=== PATIENT | male | born 1940 | race Caucasian/White ===

== ENCOUNTER 2020-03-28 14:10 | Emergency (ER) | payer MEDICARE, BC, SELFPAY ==
[2020-03-28 14:17] VITALS: BP 128/62; PULSE 65; RESP 18; O2SAT 99; BMI 22.4
--- NOTE | 2020-03-28 15:45 | ED.EXTPRO ---
HPI - Extremity Problem <DOLORES Jacobson - Last Filed: 03/28/20 22:32> General Chief complaint: Extremity Problem,Nontraumatic Stated complaint: states neuropathy, unable to sleep for several day Time Seen by Provider: 03/28/20 14:55 Source: patient Mode of arrival: Ambulatory Limitations: no limitations History of Present Illness HPI Narrative: This is a 79-year-old male, smoker, who presents to ED with son with chief complain of bilateral leg/foot burning, tingling, aching discomfort. Patient reports pain is so severe he could not sleep for last 3 days. Patient has history of diabetes, CAD, [place] with CABG, stroke with carotid stent, hypothyroidism, neuropathy, restless leg syndrome. Patient has been taking Lyrica, lidocaine gel, Ropinole for his symptoms. And patient asked about gabapentin/Neurontin, he states he used to take but this has been ran out. Patient is not currently taking insulin and his blood sugar has been running around 165 mg/dL. Patient had a few hypoglycemic episode from insulin medication. Patient reports pain improves when he is walking around. He denies fever, chills, nausea or vomiting. Patient denies fever, chills, nausea, vomiting, calf pain, calf swelling. Reports fell couple of weeks ago and has old scabs on right anterior echeverria area. Related Data Home Medications Medication Instructions Recorded Confirmed Lidocaine Pain Relief 03/28/20 Plavix 75 mg 03/28/20 Vitamin D3 03/28/20 alogliptin 03/28/20 atorvastatin 80 mg 03/28/20 iron 03/28/20 levothyroxine 03/28/20 lisinopril 10 mg 03/28/20 metformin 500 03/28/20 nitroglycerin mg 03/28/20 pregabalin 03/28/20 ropinirole 03/28/20 tamsulosin mg PO 03/28/20 Previous Rx's Medication Instructions Recorded gabapentin 300 mg PO Q8H #21 cap 03/28/20 Allergies Allergy/AdvReac Type Severity Reaction Status Date / Time propoxyphene [From Darvon] Allergy Intermediate Swelling Verified 03/28/20 14:21 of Lip/Tongue/Throat Review of Systems <DOLORES Jacobson - Last Filed: 03/28/20 22:32> Review of Systems Narrative: General: Denies fever, chills, fatigue, malaise, sweats. HEENT: Denies sinus pain, ear pain, sore throat, difficulty swallowing, dizziness. Respiratory: Denies dyspnea, cough, wheezing, hemoptysis, sputum. Cardiovascular: Denies chest pain, palpitations, orthopnea, edema. Gastrointestinal: Denies nausea, vomiting, abdominal pain, diarrhea, constipation, melena. : Denies dysuria, frequency, incontinence, hematuria, urinary retention. Musculoskeletal: See HPI Skin: Denies rash, skin lesions, or other. Neurologic: See HPI Psychiatric: No concerning psychosocial issues. 12-point review of systems is negative except for those stated above. Patient History <DOLORES Jacobson - Last Filed: 03/28/20 22:32> Medical History CAD (coronary artery disease) (Acute) Diabetes (Acute) Heart attack (Acute) History of common carotid artery stent placement (Acute) Restless leg syndrome (Acute) Stroke (Acute) Surgical History Hx of CABG (Acute) Social History Smoking Status: Current every day smoker Smoking Status: Current every day smoker tobacco type: cigarettes Substance Use Type: does not use Exam <DOLORES Jacobson - Last Filed: 03/28/20 22:32> Narrative Exam Narrative: General appearance: well developed, well nourished, in no acute distress. Head: normocephalic, atraumatic, no scalp lesions, non-tender. ENT: Hearing difficulty. Airway patent. Neck/Thyroid: neck supple, full range of motion, no visible masses or meningeal signs. No JVD, non-tender without lymphadenopathy. Skin: Several dried old scabs on right lower extremity in echeverria area. No signs of cellulitis. No suspicious rashes, lesions over other visible areas. Warm and dry and appropriate color for ethnicity. Heart: no clubbing, no cyanosis, no edema. S1 and S2 normal. RRR w/o murmurs, clicks, or bruits. Lungs: Breathing even and unlabored. No stridor. No accessory muscles used. Able to speak in full sentences. Chest: normal shape and expansion. Abdomen: non-obese, non-distended. Neurologic: alert and oriented. Cognitive exam, CARD PLAYER and PNS grossly intact on informal exam. Psych: good eye contact, normal affect. Initial Vital Signs Initial Vital Signs: Vital Signs Pulse Rate 65 03/28/20 14:17 Respiratory Rate 18 03/28/20 14:17 Blood Pressure 128/62 03/28/20 14:17 Pulse Oximetry 99 03/28/20 14:17 Extrem Right lower extremity: normal to inspection, full ROM, no joint enlargement and lower leg (Several Old scabs without signs of cellulitis) Details: no edema; no tenderness, no localized swelling, no pitting edema, no deformity and no unusual warmth; no edema Left lower extremity: normal to inspection, full ROM and no joint enlargement; no edema <Nicho Montanez MD - Last Filed: 03/29/20 07:46> Initial Vital Signs Initial Vital Signs: Vital Signs Pulse Rate 65 03/28/20 14:17 Respiratory Rate 18 03/28/20 14:17 Blood Pressure 128/62 03/28/20 14:17 Pulse Oximetry 99 03/28/20 14:17 Scores <DOLORES Jacobson - Last Filed: 03/28/20 22:32> GCS [place] coma scale eye opening: Spontaneous [place] coma scale verbal response: Orientated [place] coma scale motor response: Obey commands Serg coma scale total score: 15 Course <DOLORES Jacobson - Last Filed: 03/28/20 22:32> Vital Signs Vital signs: Vital Signs - 8 hr 03/28/20 15:52 Pulse Rate 69 Respiratory Rate 20 Blood Pressure [Left Arm] 114/56 L Pulse Oximetry 95 <Nicho Montanez MD - Last Filed: 03/29/20 07:46> Vital Signs Vital signs: Vital Signs - 8 hr 03/28/20 15:52 Pulse Rate 69 Respiratory Rate 20 Blood Pressure [Left Arm] 114/56 L Pulse Oximetry 95 MDM - Extremity (Nontraumatic) <DOLORES Jacobson - Last Filed: 03/28/20 22:32> Differential Diagnosis Differential diagnosis: Likely cellulitis and other (Neuropathy, restless leg syndrome,) Medical Records Attestation: I reviewed the patient's medical records. [facility] Narrative Medical decision making narrative: Patient's has significant medical history including CAD, [place], stroke with history of diabetes, peripheral neuropathy, restless leg syndrome. Patient currently takes Lyrica and reports ran out of gabapentin for some time. Patient [facility] not [facility] in [facility] after he moved to here. Patient has old healing scab on right lower echeverria without signs and symptoms of cellulitis. Physical exam is not consistent with signs of DVT. Patient reports he has not been able to sleep for last 3 days due to neuropathy. Patient discharged to home with gabapentin 300 mg up to 3 times a day and advised to [facility] with [facility]. Discussed gabapentin precaution including sleepiness/drowsiness. Advised continue with current home medications including Lyrica, Ropinirole. Return precautions were discussed with patient and patient verbalized the understanding and in agreement with the treatment plan. Discharge Plan Departure Patient Disposition: Home Clinical Impression: Neuropathy Discharge Date/Time: 03/28/20 15:52 Instructions: DI for Peripheral Neuropathy Activity Restrictions/Additional Instructions: You have been diagnosed with [pre-existing neuropathy and restless leg syndrome. Please take Neurontin/gabapentin 300 mg up to 3 times a day for pain. This medication may cause drowsiness so please take precautions.]. What to do: *Take your medications as directed. Gabapentin/Neurontin has been transmitted to [facility] in [facility]. Continue current medications including Lyrica but this can cause increasing drowsiness and please monitor for this. *Follow up with your primary care provider in 2-3 days, call for an appointment. Let them know you were seen in the ED and that we asked you to be seen in follow up. Please see [place] clinic information in this discharge instruction. *Return to ED if you have any new, worsening, or concerning symptoms, such as [fever, chest pain, breathing difficulty, unable to tolerate fluids, weakness in your lower extremities or any acute concerns.]. Prescriptions: New gabapentin 300 mg capsule 300 mg PO Q8H Qty: 21 RF: 0 No Action tamsulosin 0.4 mg Capsule PO RF: 0 nitroglycerin 0.4 mg Tablet, Sublingual RF: 0 pregabalin 75 mg capsule RF: 0 levothyroxine 25 mcg Capsule RF: 0 Lidocaine Pain Relief RF: 0 Plavix 75 mg RF: 0 Vitamin D3 RF: 0 alogliptin RF: 0 atorvastatin 80 mg RF: 0 iron RF: 0 lisinopril 10 mg RF: 0 metformin 500 RF: 0 ropinirole RF: 0 Referrals: [place] [facility] ([facility]) [Outside]
[2020-03-28 15:52] VITALS: BP 114/56; PULSE 69; RESP 20; O2SAT 95
== END 2020-03-28 15:52 | disposition home or self-care (01) ==
PROVIDERS: Emergency Provider Nurse Practitioner Family
DX: E11.42 Type 2 diabetes mellitus with diabetic polyneuropathy (principal); I25.10 Atherosclerotic heart disease of native coronary artery without angina pectoris
CPT/HCPCS: 99281; 99282

== ENCOUNTER 2020-05-04 12:41 | Emergency (ER) | payer MEDICARE, BC, SELFPAY ==
[2020-05-04] VITALS (7 sets, daily range): BP systolic 116–132; BP diastolic 59–64; PULSE 62–98; RESP 17–18; TEMP 36.7; O2SAT 98–100
--- NOTE | 2020-05-04 13:02 | ED.SKABFB ---
HPI - Skin/Abscess/Foreign Bdy General Chief complaint: Skin/Abscess/Foreign Body Stated complaint: states infection in both feet Time Seen by Provider: 05/04/20 13:02 Source: patient and family Mode of arrival: Ambulatory Limitations: no limitations History of Present Illness HPI narrative: The patient is diabetic, treating herself with oral meds and insulin as needed only. He maintains his glucose in the 100 range. His recent developed erythema to both feet, right greater than left. Erythema is been present for about 1 week. Erythema is mostly present in the distal feet, no significant did and edema in the left foot but slight edema in the right foot. There is no erythema extending up the legs. If multiple small injuries to the legs. There are superficial erythema SIRS, but no deep ulcers. He has had no acute injury. He is diabetic. He also has a prior history of spinal injury, and has, patient are loss along with diabetic neuropathy. He has no fever chills with current symptoms. He is formally a [facility], he is not well established locally. Related Data Home Medications Medication Instructions Recorded Confirmed Lidocaine Pain Relief 03/28/20 Plavix 75 mg 03/28/20 Vitamin D3 03/28/20 alogliptin 03/28/20 atorvastatin 80 mg 03/28/20 iron 03/28/20 levothyroxine 03/28/20 lisinopril 10 mg 03/28/20 metformin 500 03/28/20 nitroglycerin mg 03/28/20 pregabalin 03/28/20 ropinirole 03/28/20 tamsulosin mg PO 03/28/20 Previous Rx's Medication Instructions Recorded gabapentin 300 mg PO Q8H #21 cap 03/28/20 sulfamethoxazole-trimethoprim 1 tab PO BID 10 Days #20 tab 05/04/20 Allergies Allergy/AdvReac Type Severity Reaction Status Date / Time propoxyphene [From Darvon] Allergy Intermediate Swelling Verified 05/04/20 13:01 of Lip/Tongue/Throat Review of Systems Review of Systems ROS Unobtainable: All systems reviewed & are unremarkable except as noted in HPI and below Constitutional Constitutional: Denies chills, Denies fatigue, Denies fever(s) and Denies frequent falls ENT Ears, Nose, Mouth, and Throat: Denies dizziness, Denies mouth pain and Denies sore throat Cardiovascular Cardiovascular: Denies chest pain, Denies irregular heart rhythm and Denies dyspnea Respiratory Respiratory: Denies cough, Denies dyspnea and Denies wheezing Gastrointestinal Gastrointestinal: Denies abdominal pain, Denies change in bowel habits, Denies diarrhea, Denies nausea and Denies vomiting Genitourinary Genitourinary: Denies dysuria Genitourinary: Denies dysuria Musculoskeletal Musculoskeletal: Reports numbness (Both feet.) Comments: Lower extremity our last. Diabetic neuropathy. Integumentary/Breasts Skin/Breast: Denies pruritus, Reports erythema (Both feet.), Denies rash and Reports wounds (Both feet.) Neurologic Neurologic: Denies behavioral changes, Denies confusion, Denies dizziness, Denies frequent falls and Reports numbness (Both feet.) Psychiatric Psychiatric: Denies behavioral changes and Denies confusion Endocrine Endocrine: Denies fatigue and Denies flushing Hematologic/Lymphatic Hematologic/Lymphatic: Denies easy bruising Allergic/Immunologic Allergic/Immunologic: Denies wheezing Patient History Medical History CAD (coronary artery disease) (Acute) Diabetes (Acute) Heart attack (Acute) History of common carotid artery stent placement (Acute) Restless leg syndrome (Acute) Stroke (Acute) Surgical History Hx of CABG (Acute) Social History Smoking Status: Current every day smoker Smoking Status: Current every day smoker tobacco type: cigarettes and smokeless tobacco alcohol intake frequency: 0-2 drinks per day Substance Use Type: does not use Exam Initial Vital Signs Initial Vital Signs: Vital Signs Temperature 98.1 F 05/04/20 12:50 Pulse Rate 98 H 05/04/20 12:50 Respiratory Rate 18 05/04/20 12:50 Blood Pressure 116/62 05/04/20 12:50 Pulse Oximetry 98 05/04/20 12:50 Neck Neck: No lymphadenopathy and No JVD Resp Effort & Inspection: normal respiratory effort, able to speak in complete sentences, no respiratory distress and no use of accessory muscles Auscultation: clear to auscultation bilaterally, no rales, no rhonchi and no wheezes Cardio Rate: regular rate Rhythm: regular rhythm Heart Sounds: S1 normal, S2 normal, no click, no gallops, no murmurs and no rubs Pulses: normal peripheral pulses GI Inspection: non-distended Palpation: soft, no hepatosplenomegaly, No guarding, No pulsatile mass and No tender Auscultation: normal bowel sounds Skin Other: Slight erythema to the left distal foot. Erythema to the distal 1/2 of the right foot, with edema. Multiple skin breaks was superficial injuries. No purulent discharge. Multiple eschars. No lymphadenitis. Neuro General: patient alert, patient oriented x3, gait normal and no focal motor deficits Speech: speech normal Other: Light touch deficits on both feet. Extrem Other: Full range of motion of both lower extremities. Dorsalis pedis pulses are intact. Slight erythema in the left distal foot, but he clearly has cellulitis in the right distal foot with erythema, edema and warmth. Psych Appearance: well kempt Mental Status: mental status grossly normal Attitude: cooperative Thought Content: normal and suicidality Judgment: judgment good Course Course Course Narrative: The patient has right foot cellulitis. He was treated with IV vancomycin. X-rays reveal no evidence of free air. Labs are reassuring. He will be discharged on . I contacted Dr. Leonard [facility] to [facility] on this patient with right foot cellulitis with multiple minor injuries. Orders Ordered: ED Orders 05/04/20 13:02 XR foot LT min 3V Stat XR foot RT min 3V Stat 05/04/20 13:40 CRP [C-Reactive Protein Quant] Stat Complete Blood Count AUTO DIFF Stat Comprehensive Metabolic Panel Stat Erythrocyte Sedimentation Rate Stat Lactate (Lactic Acid) Stat Lipase Stat Partial Thromboplastin Time Stat Procalcitonin Stat Prothrombin Time INR Stat 05/04/20 13:56 Blood Culture Stat Discontinued Medications Vancomycin HCl/Dextrose (Vancomycin) 1,500 mg in 300 mls @ 200 mls/hr IV NOW ONE Stop: 05/04/20 14:41 Last Admin: 05/04/20 13:47 Dose: 200 mls/hr Documented by: SKYLAR Vital Signs Vital signs: Vital Signs - 8 hr 05/04/20 12:50 05/04/20 13:41 05/04/20 13:49 Temperature 98.1 F Pulse Rate 98 H 62 66 Respiratory Rate 18 Blood Pressure 116/62 127/62 Pulse Oximetry 98 99 100 05/04/20 14:00 05/04/20 14:30 05/04/20 14:47 Temperature Pulse Rate 65 Respiratory Rate Blood Pressure 131/63 120/59 L Pulse Oximetry 100 MDM - Skin/Abscess/Foreign Bdy Lab Data Result diagrams: 05/04/20 13:40 05/04/20 13:40 Labs: Lab Results 05/04/20 05/04/20 05/04/20 Range/Units 13:40 13:40 13:40 WBC 5.8 (4.5-11.0) X10^3/uL RBC 3.67 L (4.5-5.9) X10^6/uL Hgb 11.5 L (13.5-17.5) g/dL Hct 34.2 L (41-53) % MCV 93.2 (80-100) fL MCH 31.3 (26-34) PG MCHC 33.6 (30-36) % RDW 13.9 (11.6-14.8) % Plt Count 189 (150-400) X10^3/uL Neut % (Auto) 69.5 (50-75) % Lymph % (Auto) 15.6 L (25-40) % Mcdonough % (Auto) 8.8 (3-14) % Eos % (Auto) 5.3 H (2-4) % Baso % (Auto) 0.8 (0-2) % Neut # (Auto) 4000 (0723-2435) /uL Lymph # (Auto) 900 L (0747-2909) /uL Mcdonough # (Auto) 500 (0-900) /uL Eos # (Auto) 300 (0-450) /uL Baso # (Auto) 0 (0-100) /uL ESR (0-15) MM/HR PT 11.7 (10.1-12.7) SECONDS INR 1.0 (0.9-1.3) APTT 33 (26.4-36.2) SECONDS Sodium (137-145) mmol/L Potassium (3.4-5.1) mmol/L Chloride (98-107) mmol/L Carbon Dioxide (22-32) mmol/L BUN (9-20) mg/dL Creatinine (0.66-1.25) mg/dL Estimated GFR (>60) mL/min BUN/Creatinine Ratio (6-22) Glucose (80-110) mg/dL Lactate (0.7-2.1) mmol/L Calcium (8.4-10.2) mg/dL Total Bilirubin (0.2-1.3) mg/dL AST (17-59) IU/L ALT (<50) IU/L Alkaline Phosphatase (38-126) U/L C-Reactive Protein (<1.0) mg/dL Total Protein (6.3-8.2) g/dL Albumin (3.5-5.0) g/dL Globulin (1.7-4.1) g/dL Albumin/Globulin Ratio (1.0-2.8) Lipase (23-300) U/L Procalcitonin < 0.05 (<0.5) ng/mL 05/04/20 05/04/20 05/04/20 Range/Units 13:40 13:40 13:40 WBC (4.5-11.0) X10^3/uL RBC (4.5-5.9) X10^6/uL Hgb (13.5-17.5) g/dL Hct (41-53) % MCV (80-100) fL MCH (26-34) PG MCHC (30-36) % RDW (11.6-14.8) % Plt Count (150-400) X10^3/uL Neut % (Auto) (50-75) % Lymph % (Auto) (25-40) % Mcdonough % (Auto) (3-14) % Eos % (Auto) (2-4) % Baso % (Auto) (0-2) % Neut # (Auto) (4099-8264) /uL Lymph # (Auto) (9064-3536) /uL Mcdonough # (Auto) (0-900) /uL Eos # (Auto) (0-450) /uL Baso # (Auto) (0-100) /uL ESR 12 (0-15) MM/HR PT (10.1-12.7) SECONDS INR (0.9-1.3) APTT (26.4-36.2) SECONDS Sodium 136 L (137-145) mmol/L Potassium 4.8 (3.4-5.1) mmol/L Chloride 107 (98-107) mmol/L Carbon Dioxide 22 (22-32) mmol/L BUN 40 H (9-20) mg/dL Creatinine 1.02 (0.66-1.25) mg/dL Estimated GFR > 60.0 (>60) mL/min BUN/Creatinine Ratio 39.2 H (6-22) Glucose 140 H (80-110) mg/dL Lactate 1.6 (0.7-2.1) mmol/L Calcium 9.4 (8.4-10.2) mg/dL Total Bilirubin 0.4 (0.2-1.3) mg/dL AST 37 (17-59) IU/L ALT 36 (<50) IU/L Alkaline Phosphatase 105 (38-126) U/L C-Reactive Protein (<1.0) mg/dL Total Protein 6.5 (6.3-8.2) g/dL Albumin 4.1 (3.5-5.0) g/dL Globulin 2.4 (1.7-4.1) g/dL Albumin/Globulin Ratio 1.7 (1.0-2.8) Lipase 103 (23-300) U/L Procalcitonin (<0.5) ng/mL 05/04/20 Range/Units 13:40 WBC (4.5-11.0) X10^3/uL RBC (4.5-5.9) X10^6/uL Hgb (13.5-17.5) g/dL Hct (41-53) % MCV (80-100) fL MCH (26-34) PG MCHC (30-36) % RDW (11.6-14.8) % Plt Count (150-400) X10^3/uL Neut % (Auto) (50-75) % Lymph % (Auto) (25-40) % Mcdonough % (Auto) (3-14) % Eos % (Auto) (2-4) % Baso % (Auto) (0-2) % Neut # (Auto) (5126-0622) /uL Lymph # (Auto) (1831-6657) /uL Mcdonough # (Auto) (0-900) /uL Eos # (Auto) (0-450) /uL Baso # (Auto) (0-100) /uL ESR (0-15) MM/HR PT (10.1-12.7) SECONDS INR (0.9-1.3) APTT (26.4-36.2) SECONDS Sodium (137-145) mmol/L Potassium (3.4-5.1) mmol/L Chloride (98-107) mmol/L Carbon Dioxide (22-32) mmol/L BUN (9-20) mg/dL Creatinine (0.66-1.25) mg/dL Estimated GFR (>60) mL/min BUN/Creatinine Ratio (6-22) Glucose (80-110) mg/dL Lactate (0.7-2.1) mmol/L Calcium (8.4-10.2) mg/dL Total Bilirubin (0.2-1.3) mg/dL AST (17-59) IU/L ALT (<50) IU/L Alkaline Phosphatase (38-126) U/L C-Reactive Protein < 0.5 (<1.0) mg/dL Total Protein (6.3-8.2) g/dL Albumin (3.5-5.0) g/dL Globulin (1.7-4.1) g/dL Albumin/Globulin Ratio (1.0-2.8) Lipase (23-300) U/L Procalcitonin (<0.5) ng/mL Point of Care Testing Glucose POC 148 Imaging Data Right foot x-ray: Radiologist's Impression: [place] [address] XRay Report Signed Patient: Breanna Donovan#: [id number] : 1Acct:[id number] Age/Sex: 79 / MDate of Service: 05/04/20 Loc: ED Accession Number: [id number] Procedure: XR foot RT min 3V Ordering Provider: Praful Iglesias MD PROCEDURE: XR FOOT RT MIN 3V INDICATIONS: wounds bilateral toes / feet, right worse than left. TECHNIQUE: 3 views of the foot were acquired. COMPARISON: None. FINDINGS: Bones: There is a mildly impacted fracture involving the base of the proximal phalanx of the 4th toe. Irregularity involving the base of the distal phalanx of the great toe is present. There are no dislocations or suspicious osseous lesions. There appear to be postoperative changes suggesting prior osteotomy involving the head of the proximal phalanx of the 5th toe. Moderate degenerative changes are noted involving the midfoot joints and the 1st metatarsophalangeal joint. Small plantar and Achilles spurs involving the calcaneus are present. Soft tissues: No tibiotalar joint effusion. The Achilles tendon is unremarkable. IMPRESSION: 1. Age indeterminate fracture involving the proximal phalanx of the 4th digit. 2. Questionable fracture involving the distal phalanx of the great toe. 3. Postoperative changes involving the proximal phalanx of the 5th toe are suspected and clinical correlation is advised. If no surgical procedures have occurred, an erosive process cannot be excluded and MRI with contrast would be helpful for better characterization. Dictated by: Edilberto Louis M.D. on 05/04/2020 at 12:56 Approved by: Edilberto Louis M.D. on 05/04/2020 at 13:04 Left foot x-ray: Radiologist's Impression: [address] [address] XRay Report Signed Patient: Praful DonovanMR#: [id number] : 1940cct:[id number] Age/Sex: 79 / MDate of Service: 05/04/20 Loc: ED Accession Number: [id number] Procedure: XR foot LT min 3V Ordering Provider: Praful Iglesias MD PROCEDURE: XR FOOT LT MIN 3V INDICATIONS: wounds bilateral toes / feet, right worse than left. TECHNIQUE: 3 views of the foot were acquired. COMPARISON: None. FINDINGS: Bones: No fractures or dislocations. No suspicious bony lesions. Moderate degenerative changes of the foot are identified throughout. Postsurgical changes of the 2nd toe are present related to prior amputation. There may be overhanging erosions involving the joints of the great toe. Plantar and Achilles spurs are present. Soft tissues: No tibiotalar joint effusion. Achilles tendon appears normal. IMPRESSION: 1. No definite acute fracture or dislocation. 2. Moderate degenerative changes of the foot. There are questionable erosive changes of the joints of the great toe, raising suspicious for a potential inflammatory arthropathy, such as gout. 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 Dictated by: Edilberto Louis M.D. on 05/04/2020 at 13:04 Approved by: Edilberto Louis M.D. on 05/04/2020 at 13:05 Discharge Plan Departure Patient Disposition: Home Clinical Impression: Cellulitis of foot, right Diabetic neuropathy Qualifiers: Diabetes mellitus type: other specified (including GER) Diabetes mellitus complication detail: diabetic mononeuropathy Qualified Code(s): E13.41 - Other specified diabetes mellitus with diabetic mononeuropathy Abrasion of multiple sites of lower extremity Qualifiers: Encounter type: initial encounter Laterality: unspecified laterality Qualified Code(s): S80.819A - Abrasion, unspecified lower leg, initial encounter Instructions: DI for Cellulitis -- Adult Activity Restrictions/Additional Instructions: Wash your feet with soap and warm water 2 times daily. Septra DS 2 times daily for 10 days. The prescription has been faxed to [facility]. [facility]up [facility] and your physician for monitoring of the current infection. Return to the ER as needed. Prescriptions: New sulfamethoxazole-trimethoprim 800-160 mg tablet 1 tab PO BID 10 Days Qty: 20 RF: 0 No Action gabapentin 300 mg capsule 300 mg PO Q8H Qty: 21 RF: 0 tamsulosin 0.4 mg Capsule PO RF: 0 nitroglycerin 0.4 mg Tablet, Sublingual RF: 0 pregabalin 75 mg capsule RF: 0 levothyroxine 25 mcg Capsule RF: 0 Lidocaine Pain Relief RF: 0 Plavix 75 mg RF: 0 Vitamin D3 RF: 0 alogliptin RF: 0 atorvastatin 80 mg RF: 0 iron RF: 0 lisinopril 10 mg RF: 0 metformin 500 RF: 0 ropinirole RF: 0 Referrals: Gumaro Leonard MD [Physician] -
[2020-05-04] MEDS: VANCOMYCIN 1,500 MG/300 ML FROZ.PIGGY 200 MG IV (13:47)
[2020-05-04 13:53] LABS: Add Manual Diff / Slide Review NO; Basophils Absolute Auto 0 /uL (0-100); Basophils Percent Auto 0.8 % (0-2); Eosinophils Absolute Auto 300 /uL (0-450); Eosinophils Percent Auto 5.3 % (2-4); Hematocrit 34.2 % (41-53); Hemoglobin 11.5 g/dL (13.5-17.5); Lymphocytes Absolute Auto 900 /uL (1100-4500); Lymphocytes Percent Auto 15.6 % (25-40); Mean Corpuscular HGB Conc 33.6 % (30-36); Mean Corpuscular Hemoglobin 31.3 PG (26-34); Mean Corpuscular Volume 93.2 fL (80-100); Monocytes Absolute Auto 500 /uL (0-900); Monocytes Percent Auto 8.8 % (3-14); Neutrophils Absolute Auto 4000 /uL (1500-7000); Neutrophils Percent Auto 69.5 % (50-75); Platelet Count 189 X10^3/uL (150-400); Red Blood Cell Count 3.67 X10^6/uL (4.5-5.9); Red Cell Distribution Width 13.9 % (11.6-14.8); White Blood Cell Count 5.8 X10^3/uL (4.5-11.0)
[2020-05-04 14:00] LABS: Prothrombin Time 11.7 SECONDS (10.1-12.7)
[2020-05-04 14:03] LABS: PTT Partial Thromboplastin Tim 33 SECONDS (26.4-36.2)
[2020-05-04 14:09] LABS: Lactate (Lactic Acid) 1.6 mmol/L (0.7-2.1)
[2020-05-04 14:10] LABS: Alanine Aminotransferase 36 IU/L (<50); Albumin 4.1 g/dL (3.5-5.0); Albumin Globulin Ratio 1.7 (1.0-2.8); Alkaline Phosphatase 105 U/L (38-126); Aspartate Aminotransferase 37 IU/L (17-59); BUN Creatinine Ratio 39.2 (6-22); Bilirubin Total 0.4 mg/dL (0.2-1.3); Blood Urea Nitrogen 40 mg/dL (9-20); Calcium 9.4 mg/dL (8.4-10.2); Carbon Dioxide 22 mmol/L (22-32); Chloride 107 mmol/L (98-107); Estimated Glomerular Filt Rate > 60.0 mL/min (>60); Globulin 2.4 g/dL (1.7-4.1); Glucose 140 mg/dL (80-110); HEMOLYSIS < 15 (0-50); Lipase 103 U/L (23-300); Potassium 4.8 mmol/L (3.4-5.1); Sodium 136 mmol/L (137-145); Total Protein 6.5 g/dL (6.3-8.2)
[2020-05-04 14:15] LABS: C-Reactive Protein Quant < 0.5 mg/dL (<1.0)
[2020-05-04 14:19] LABS: Erythrocyte Sedimentation Rate 12 MM/HR (0-15)
[2020-05-04 14:20] LABS: Procalcitonin < 0.05 ng/mL (<0.5)
--- NOTE | 2020-05-04 15:23 | PC.NURSE ---
Moved pt to rm 3 while waiting for results. Pt is sitting in chair reclined with warm blankets and access to call light.
--- NOTE | 2020-05-04 15:27 | PC.NURSE ---
Pt has scabs surrounded by erythema on all 5 toes of right foot, no drainage visible.
== END 2020-05-04 15:52 | disposition home or self-care (01) ==
PROVIDERS: Emergency Provider Emergency Medicine
DX: E13.41 Other specified diabetes mellitus with diabetic mononeuropathy (principal); S80.819A Abrasion, unspecified lower leg, initial encounter; L03.115 Cellulitis of right lower limb
CPT/HCPCS: 36415; 73630; 80053; 82962; 83605; 83690; 84145; 85025; 85610; 85651; 85730; 86140; 87040; 96365; 96366; 99284